=== PATIENT | male | born 1995 | race African-American/Black ===

== ENCOUNTER 2020-08-08 23:19 | Emergency (ER) | payer MEDICAID ==
[~2020-08-08] VITALS: Ht 162.6 cm; Wt 59.1 kg
[2020-08-08 23:27] VITALS: TEMP 98.3
[2020-08-09 01:11] VITALS: BP 112/71; PULSE 74
== END 2020-08-09 01:11 | disposition home or self-care (01) ==
LOC: COL.ER 23:19
DX: R51.9 Headache, unspecified (principal)
CPT/HCPCS: J1885; J2550

== ENCOUNTER 2021-04-29 08:49 | Emergency (ER) | payer MEDICAID ==
[~2021-04-29] VITALS: Ht 162.6 cm; Wt 60.9 kg
[2021-04-29 10:05] VITALS: BP 108/75; PULSE 56; TEMP 98.2
== END 2021-04-29 10:05 | disposition home or self-care (01) ==
LOC: COL.ER 08:49
DX: S69.92XA Unspecified injury of left wrist, hand and finger(s), initial encounter (principal); F17.210 Nicotine dependence, cigarettes, uncomplicated; W22.8XXA Striking against or struck by other objects, initial encounter; Y99.0 Civilian activity done for income or pay

== ENCOUNTER 2021-06-20 22:21 | Emergency (ER) | payer MEDICAID ==
[~2021-06-20] VITALS: Ht 162.6 cm; Wt 63.6 kg
[2021-06-20 22:26] VITALS: TEMP 98.3
[2021-06-20] MEDS ORDERED: AMOXICILLIN 8751 TAB PO (23:21)
[2021-06-20 23:34] VITALS: BP 112/78; PULSE 76
== END 2021-06-20 23:34 | disposition home or self-care (01) ==
LOC: COL.ER 22:21
DX: K04.7 Periapical abscess without sinus (principal); K08.9 Disorder of teeth and supporting structures, unspecified

== ENCOUNTER 2021-09-02 22:29 | Emergency (ER) | payer MEDICAID ==
[~2021-09-02] VITALS: Ht 162.6 cm; Wt 63.6 kg
[~2021-09-02 22:29] MED LIST: AMOXICILLIN 8751 TAB PO
[2021-09-03 00:10] VITALS: BP 114/66; PULSE 60; TEMP 97.9
== END 2021-09-03 00:10 | disposition home or self-care (01) ==
LOC: COL.ER 22:29
DX: B34.9 Viral infection, unspecified (principal); F17.210 Nicotine dependence, cigarettes, uncomplicated; Z20.822 Contact with and (suspected) exposure to COVID-19

== ENCOUNTER 2023-09-08 16:36 | Emergency (ER) | payer MEDICAID ==
[~2023-09-08] VITALS: Ht 165.1 cm; Wt 50.0 kg
[~2023-09-08 16:36] MED LIST changes: +NORCO 325 MG-51 TAB PO; +ZOFRAN 4MG T4 MG/TAB PO
[2023-09-08] MEDS ORDERED: Naproxen 250 MG TAB PO ONE (17:15)
[2023-09-08] MEDS ORDERED: NAPROSYN500 MG PO (18:01)
[2023-09-08 18:26] VITALS: BP 107/64; PULSE 50; TEMP 97.3
== END 2023-09-08 18:26 | disposition home or self-care (01) ==
LOC: COL.ER 16:36
DX: S80.01XA Contusion of right knee, initial encounter (principal); F17.210 Nicotine dependence, cigarettes, uncomplicated; W18.2XXA Fall in (into) shower or empty bathtub, initial encounter; W22.8XXA Striking against or struck by other objects, initial encounter

== ENCOUNTER 2024-04-13 10:05 | Emergency (ER) | payer MEDICAID ==
[~2024-04-13] VITALS: Ht 165.1 cm; Wt 50.0 kg
[~2024-04-13 10:05] MED LIST changes: +CRUTCHES MC; +NAPROSYN500 MG PO
[2024-04-13 10:26] VITALS: TEMP 98
[2024-04-13] MEDS ORDERED: ZITHROMAX Z PA250 MG PO (11:59)
[2024-04-13] MEDS ORDERED: PROAIR HFA0.09 MG/AC IH (12:01)
[2024-04-13 12:10] VITALS: BP 117/72; PULSE 87
== END 2024-04-13 12:10 | disposition home or self-care (01) ==
LOC: COL.ER 10:05
DX: J40 Bronchitis, not specified as acute or chronic (principal); B34.9 Viral infection, unspecified